=== PATIENT | male | born 1950 | race Caucasian/White ===

== ENCOUNTER 2024-05-05 06:24 | Day surgery (SDC) | payer MEDICARE, BC ==
[2024-05-05] MEDS ORDERED: fentaNYL 50 MCG/ML SDV ONE ×2 (06:42→07:15)
[2024-05-05] MEDS ORDERED: Propofol 200 MG/20 ML SDV ONE (06:42)
[2024-05-05] MEDS: Sodium Chloride 0.9% 1,000 ML IV SCH (07:09)
[2024-05-05 09:00] VITALS: BP 129/78; PULSE 63
== END 2024-05-05 08:45 | disposition home or self-care (01) ==
LOC: JP.SDS 06:24
PROVIDERS: ATTEND Internal Medicine
DX: K31.89 Other diseases of stomach and duodenum (principal); K92.1 Melena; E78.5 Hyperlipidemia, unspecified; I10 Essential (primary) hypertension; E66.9 Obesity, unspecified
CPT/HCPCS: 00731; 43235; J2704; J3010; J7030